=== PATIENT | female | born 1940 | race Caucasian/White ===

== ENCOUNTER 2021-07-30 14:23 | Emergency (ER) | payer MEDICARE, OTHER ==
[2021-07-30 16:33] LABS: CORONAVIRUS COVID-19 NAA NEGATIVE (NEGATIVE); INFLUENZA A NAA NEGATIVE (NEGATIVE); INFLUENZA B NAA NEGATIVE (NEGATIVE)
[2021-07-30] MEDS ORDERED: Azithromycin 250 MG Tab PO STA (16:37)
[2021-07-30] MEDS ORDERED: predniSONE 20 MG Tab PO ONE (16:37)
[2021-07-30] MEDS ORDERED: predniSONE 20 MG Tab PO STA (16:44)
== END 2021-07-30 17:08 | disposition home or self-care (01) ==
LOC: MW.ED 14:23
DX: J18.9 Pneumonia, unspecified organism (principal); J04.0 Acute laryngitis; Z20.822 Contact with and (suspected) exposure to COVID-19
CPT/HCPCS: 0240U; 71045; 93005; 99284; A9270; 93010